=== PATIENT | male | born 1990 | race Two or more races ===

== ENCOUNTER 2019-10-16 11:13 | Emergency (ER) | payer OTHER ==
[~2019-10-16] VITALS: Ht 172.7 cm; Wt 102.3 kg
[2019-10-16] MEDS ORDERED: SODIUM CHLORIDE 0.9% 1,000ML IVBOLUS ONE (12:00)
[2019-10-16] MEDS ORDERED: SODIUM CHLORIDE FLUSH 10ML SYR IVF ONE (12:00)
[2019-10-16 12:01] LABS: PH, VENOUS 7.357 pH (7.320-7.420)
[2019-10-16 12:08] LABS: BASOPHILS # (AUTO) 0.01 x10^3/uL (0-0.1); BASOPHILS % (AUTO) 0 % (0-1); EOSINOPHILS # (AUTO) 0.01 x10^3/uL (0-0.4); EOSINOPHILS % (AUTO) 0 % (1-7); LYMPHOCYTES # (AUTO) 2.04 x10^3/uL (1-3.4); LYMPHOCYTES % (AUTO) 31 % (22-44); MD NO; MEAN CORPUSCULAR HEMOGLOBIN 30.7 pg (27.5-34.5); MEAN CORPUSCULAR HGB CONC 34.2 g/dL (33.2-36.2); MEAN CORPUSCULAR VOLUME 89.8 fL (81-97); MEAN PLATELET VOLUME 9.4 fL (7.4-10.4); MONOCYTES # (AUTO) 0.48 x10^3/uL (0.2-0.8); MONOCYTES % (AUTO) 7 % (2-9); NEUTROPHILS # (AUTO) 3.98 x10^3/uL (1.8-6.8); NEUTROPHILS % (AUTO) 61 % (42-75); PLATELET COUNT 180 x10^3/uL (130-400); RED BLOOD COUNT 5.46 x10^6/uL (4.38-5.82); RED CELL DISTRIBUTION WIDTH 12.5 % (9.4-14.8)
[2019-10-16 12:19] LABS: ALANINE AMINOTRANSFERASE 74 U/L (12-78); ALBUMIN 3.4 g/dL (3.4-5.0); ANION GAP 10 mmol/L (5-15); CALCIUM 8.6 mg/dL (8.5-10.1); CHLORIDE 99 mmol/L (98-107); CREATININE 1.03 mg/dL (0.7-1.3)
[2019-10-16 12:21] LABS: ALKALINE PHOSPHATASE 125 U/L (45-117); BILIRUBIN,TOTAL 0.8 mg/dL (0.2-1.0); TOTAL PROTEIN 8.2 g/dL (6.4-8.2)
--- NOTE | 2019-10-16 12:31 | NUR ---
VSS, PIV WAS EST AND LABS SENT. AWAITING CT. NAD.
[2019-10-16] MEDS ORDERED: ONDANSETRON 2MG/ML, 2ML ONE (12:49)
[2019-10-16] MEDS ORDERED: MORPHINE SULFATE 4 MG/ML, 1ML ONE (12:50)
[2019-10-16] MEDS ORDERED: ONDANSETRON 2MG/ML, 2ML IVPush ONE (13:00)
[2019-10-16] MEDS ORDERED: MORPHINE SULFATE 4 MG/ML, 1ML IVPush ONE (13:00)
[2019-10-16] MEDS ORDERED: OMNIPAQUE 350 MG/ML, 100ML BOTTLE ONE (13:32)
[2019-10-16 13:45] LABS: ACETONE, SERUM Large (80mg/dL) (Negative)
--- NOTE | 2019-10-16 13:45 | NUR ---
awaiting ua and rad results. sts pain/nausea relieved by meds. gait steady to bathroom.as
[2019-10-16 14:09] LABS: MICROSCOPIC NOT IND
[2019-10-16 14:11] VITALS: BP 133/78
--- NOTE | 2019-10-16 14:46 | NUR ---
Patient given discharge instructions and Rx, they have confirmed that they understand the instructions. Patient ambulatory with steady gait.
== END 2019-10-16 14:48 | disposition home or self-care (01) ==
LOC: ED 13:38
DX: U07.1 COVID-19 (principal); E11.9 Type 2 diabetes mellitus without complications; R10.13 Epigastric pain; R11.2 Nausea with vomiting, unspecified; R42 Dizziness and giddiness; R51 Headache; R00.0 Tachycardia, unspecified
CPT/HCPCS: 36415; 74177; 80053; 81003; 82010; 82803; 83036; 83690; 83735; 85025; 93005; 96361; 96374; 96375; 99285; J2270; J2405; J7030; Q9967; U0001